=== PATIENT | female | born 1995 ===

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

== ENCOUNTER → 2017-07-09 | Outpatient (CLI) | payer BC | END | disposition home or self-care (01) | LOC: GMAH 12:35 | PROVIDERS: ATTEND Family Medicine | DX: E04.8 Other specified nontoxic goiter (principal) ==